=== PATIENT | female | born 1970 | race Caucasian/White ===

== ENCOUNTER 2019-03-03 19:25 | Emergency (ER) | payer OTHER ==
[~2019-03-03] VITALS: Ht 167.6 cm; Wt 90.5 kg
[2019-03-03 19:31] VITALS: Ht 167.6 cm; Wt 90.5 kg
[2019-03-03 20:49] LABS: BASOPHIL % 0.5 % (0-2); PLATELET COUNT 173 x10^3mcL (130-400)
[2019-03-03 21:00] LABS: CALCIUM 9.2 mg/dL (8.5-10.1); CARBON DIOXIDE 28.8 mmol/L (21-32); CHLORIDE SERUM 105 mmol/L (98-107); CREATININE SERUM 0.9 mg/dL (0.6-1.0); GFR1 > 60 mL/min; GLUCOSE SERUM 100 mg/dL (74-106); POTASSIUM SERUM 4.2 mmol/L (3.5-5.1); SODIUM SERUM 143 mmol/L (136-145)
[2019-03-03 21:14] LABS: ALKALINE PHOSPHATASE 94 U/L (46-116); ALT/SGPT 121 U/L (14-59); AST/SGOT 84 U/L (15-37)
[2019-03-03 21:15] LABS: TOTAL PROTEIN, SERUM 8.3 g/dL (6.4-8.2)
[2019-03-03 23:55] VITALS: BP 156/90
== END 2019-03-03 23:55 | disposition home or self-care (01) ==
LOC: ED 19:25
PROVIDERS: Emergency Medicine
DX: I10 Essential (primary) hypertension (principal); R07.89 Other chest pain
CPT/HCPCS: 36415